=== PATIENT | female | born 1990 | race Caucasian/White ===

== ENCOUNTER 2020-04-18 12:31 | Emergency (ER) | payer SELFPAY ==
[2020-04-18] MEDS ORDERED: NORMAL SALINE 1000 ML 1,000 ML IV ONE (12:49)
--- NOTE | 2020-04-18 12:51 | ER Document Report ---
ED Medical Screen (RME) - General Chief Complaint: Vaginal Bleeding Stated Complaint: VAGINAL BLEEDING Time Seen by Provider: 04/18/20 12:48 Notes: HPI: 30-year-old female who is a G2, presenting for evaluation of vaginal bleeding that began approximately a week ago states it started with light bleeding but has developed significant cramping and clots today. Patient believes that she is approximately 7 weeks by dates. Has not yet seen [facility] for this . PHYSICAL EXAMINATION: Limited exam in triage mild tenderness over the suprapubic region on palpation mildly tachycardic I have greeted and performed a rapid initial assessment of this patient. A comprehensive ED assessment and evaluation of the patient, analysis of test results and completion of medical decision making process will be conducted by an additional ED providers. - Related Data Allergies/Adverse Reactions: No Known Allergies Allergy (Verified 04/18/20 12:37) Past Medical History - Social History Frequency of alcohol use: None Drug Abuse: None Physical Exam - Vital signs Vitals: Temp Pulse Resp BP Pulse Ox 98.2 F 119 H 20 138/89 H 98 04/18/20 12:35 04/18/20 12:35 04/18/20 12:35 04/18/20 12:35 04/18/20 12:35 Course - Vital Signs Vital signs: Temp Pulse Resp BP Pulse Ox 98.2 F 119 H 20 138/89 H 98 04/18/20 12:35 04/18/20 12:35 04/18/20 12:35 04/18/20 12:35 04/18/20 12:35
[2020-04-18 14:05] LABS: ABSOLUTE BASOPHILS # (AUTO) 0.1 10^3/uL (0.0-0.2); ABSOLUTE EOSINOPHILS # (AUTO) 0.3 10^3/uL (0.0-0.6); ABSOLUTE LYMPHOCYTES (AUTO) 1.2 10^3/uL (0.5-4.7); ABSOLUTE MONOCYTES (AUTO) 0.8 10^3/uL (0.1-1.4); ABSOLUTE NEUT (AUTO) 7.7 10^3/uL (1.7-8.2); BASOPHILS % (AUTO) 0.6 % (0-2); EOSINOPHILS % (AUTO) 2.6 % (0-6); HEMATOCRIT 34.3 % (36.0-47.0); HEMOGLOBIN 11.7 g/dL (12.0-15.5); LYMPHOCYTES % (AUTO) 12.3 % (13-45); MEAN CORPUSCULAR HGB CONC 34.1 g/dL (32.0-36.0); MEAN CORPUSCULAR VOLUME 88 fl (80-97); MONOCYTES % (AUTO) 8.2 % (3-13); PLATELET COUNT 262 10^3/uL (150-450); RED CELL DISTRIBUTION WIDTH 12.8 % (11.5-14.0); SEGMENTED NEUTROPHILS % (AUTO) 76.3 % (42-78); TOTAL CELLS COUNTED % (AUTO) 100 %
[2020-04-18 14:23] LABS: APPEARANCE,URINE SLIGHTLY-CLOUDY; BILIRUBIN,URINE NEGATIVE (NEGATIVE); GLUCOSE, URINE NEGATIVE (NEGATIVE); KETONES,URINE NEGATIVE (NEGATIVE); LEUKOCYTE ESTERASE,URINE NEGATIVE (NEGATIVE); NITRITE,URINE NEGATIVE (NEGATIVE); PROTEIN,URINE >=500 mg/dL (NEGATIVE); URINE SPECIFIC GRAVITY 1.023; UROBILINOGEN,URINE NEGATIVE mg/dL (<2.0)
[2020-04-18 14:26] LABS: COLOR,URINE YELLOW
[2020-04-18 14:29] LABS: ALBUMIN 4.4 g/dL (3.5-5.0); ALKALINE PHOSPHATASE 58 U/L (38-126); ANION GAP 9 (5-19); ASPARTATE AMINO TRANSFERASE 22 U/L (14-36); BILIRUBIN,DIRECT 0.2 mg/dL (0.0-0.4); BILIRUBIN,TOTAL 0.5 mg/dL (0.2-1.3); BLOOD UREA NITROGEN 8 mg/dL (7-20); CALCIUM 9.3 mg/dL (8.4-10.2); CARBON DIOXIDE 25 mmol/L (22-30); CHLORIDE 105 mmol/L (98-107); GLUCOSE 113 mg/dL (75-110); POTASSIUM 4.1 mmol/L (3.6-5.0); TOTAL PROTEIN 7.2 g/dL (6.3-8.2)
--- NOTE | 2020-04-18 14:40 | ER Document Report ---
ED GI/ - General Chief Complaint: Vaginal Bleeding Stated Complaint: VAGINAL BLEEDING Time Seen by Provider: 04/18/20 12:48 [facility] - Follow up in 3-5 days Notes: Patient is a 30-year-old female, G2, P0 who presents emergency department with vaginal bleeding. Patient states that her last menstrual cycle was around January 18. Patient states that she feels she is about 11 weeks . Denies any vaginal discharge. Patient has history of a miscarriage in the past. Denies any medical history. Patient denies any nausea or vomiting. Denies any diarrhea. Denies any dizziness or "passing out." - Related Data Allergies/Adverse Reactions: No Known Allergies Allergy (Verified 04/18/20 12:37) Past Medical History - General Information source: Patient - Social History Smoking Status: Never Smoker Frequency of alcohol use: None Drug Abuse: None Family History: Reviewed & Not Pertinent Review of Systems - Review of Systems Notes: REVIEW OF SYSTEMS: CONSTITUTIONAL : Denies recent illness. Denies recent unintentional weight loss. Denies fever, chills, or sweats. EENT: Denies eye, ear, throat, or mouth pain, discharge, or symptoms. Denies nasal or sinus congestion. CARDIOVASCULAR: Denies chest pain. RESPIRATORY: Denies shortness of breath, cough, congestion, difficulty breathing, or wheezing. GASTROINTESTINAL: See HPI. GENITOURINARY: Denies difficulty urinating, burning, blood in urine, urgency or frequency. FEMALE GENITOURINARY: See HPI. MUSCULOSKELETAL: Denies neck and back pain. Denies joint pain or swelling. SKIN: Denies rash, itchiness, or lesions HEMATOLOGIC : Denies easy bruising or bleeding. LYMPHATIC: Denies swollen, painful, enlarged glands. NEUROLOGICAL: Denies no numbness or tingling denies weakness. Denies headache. Denies altered mental status. Denies alteration in speech. PSYCHIATRIC: Denies stress, anxiety, alteration in sleep patterns, or depression. All other systems reviewed and negative. Physical Exam - Vital signs Vitals: Temp Pulse Resp BP Pulse Ox 98.2 F 119 H 20 138/89 H 98 04/18/20 12:35 04/18/20 12:35 04/18/20 12:35 04/18/20 12:35 04/18/20 12:35 - Notes Notes: PHYSICAL EXAMINATION: GENERAL: Appears well, healthy, well-nourished, no acute distress. HEAD: Normocephalic, atraumatic. EYES: PERRL, conjunctiva normal, all extraocular movements intact, sclera nonicteric ENT: Moist mucous membranes. NECK: Supple, no noticeable swelling, redness, rash. Normal range of motion. LUNGS: Equal breath sounds bilaterally and clear to auscultation. No wheezes rales or rhonchi. CARDIOVASCULAR: S1-S2, regular rate, regular rhythm. Radial pulses 2+, normal. ABDOMEN: Normoactive bowel sounds. Soft, slightly tender mid lower abdomen, no guarding, no rebound tenderness, and no masses palpated. EXTREMITIES: Normal strength and range of motion, no pitting or edema. No cyanosis. NEUROLOGICAL: Moves all extremities upon command. Strength 5/5 in all extremities. PSYCH: Normal mood, normal affect. SKIN: Warm, dry. No rash, lesions, ulcerations noted. Normal skin turgor. Course - Re-evaluation Re-evalutation: 04/18/20 15:23 Hematology is unremarkable, other than a slight anemia of 11.7. Hematocrit is also slightly low, due to the patient's bleeding. hCG is 647 and ultrasound does not show an intrauterine . This is consistent with a miscarriage. Discussed this with the patient. [facility] Patient has a moderate amount of blood in her urine. Advised her to take ibuprofen to help with pain. Offered [place] for home and she declined. We will give her a dose here in the emergency department to help take the edge off and help with her pain. Patient is Rh+. RhoGam not indicated. Follow-up precautions were given. Verbal discharge instructions were given to the patient. They verbalized understanding. They are stable for discharge. - Vital Signs Vital signs: Temp Pulse Resp BP Pulse Ox 98.2 F 86 16 134/86 H 100 04/18/20 12:35 04/18/20 16:00 04/18/20 16:00 04/18/20 16:00 04/18/20 16:00 - Laboratory Result Diagrams: 04/18/20 13:54 04/18/20 13:54 Laboratory results interpreted by me: 04/18/20 04/18/20 04/18/20 13:54 13:54 13:54 Hgb 11.7 L Hct 34.3 L Lymph % (Auto) 12.3 L Glucose 113 H Beta HCG, Quant 647.83 H Urine Protein >=500 H Urine Blood MODERATE H Discharge - Discharge Clinical Impression: Vaginal bleeding, Miscarriage Condition: Stable Disposition: HOME, SELF-CARE Additional Instructions: You were seen today in the emergency department for vaginal bleeding. Your labs and your ultrasound showed that you miscarried. Please continue to massage her abdomen to help expel any clots. You can take ibuprofen 600 mg every 6 hours as needed for your pain. Continue Tylenol 1000 mg every 6 hours for pain. Do not exceed 2400 mg of ibuprofen or 4000 mg of Tylenol in a 24-hour period. Follow- up with [facility] in regards to this visit. Forms: Return to Work Referrals: [facility] [Provider Group] - Follow up in 3-5 days
--- NOTE | 2020-04-18 14:57 | RADIOLOGY REPORT (SQ) ---
EXAM DESCRIPTION: U/S OB TRANSVAG W/DOPPLER IMAGES COMPLETED DATE/TIME: 04/18/2020 2:43 pm REASON FOR STUDY: miscarriage COMPARISON: None. TECHNIQUE: Transvaginal static and realtime grayscale images acquired of the pelvis. Additional beryl cted spectral and color Doppler images recorded. All images stored on PACs. bHCG: Not available CLINICAL DATES: Last menses 01/19/2020 LIMITATIONS: None. FINDINGS: UTERUS: Uterus is 10.6 x 6.1 x 5.7 cm in size. No fibroids. The endometrium is heterogeneous and thickened, almost 2 cm in greatest thickness likely related to b lood clot. CERVICAL LENGTH: 3.6 cm in length Closed. RIGHT ADNEXA: Normal ovary with normal vascular flow. Right ovary 3.2 x 3 x 1.4 cm in size. No adne xal free fluid.No adnexal masses. LEFT ADNEXA: Normal ovary with normal vascular flow. Left ovary 3 x 1.8 x 1.6 cm in size. No adnexa l free fluid.No adnexal masses. FREE FLUID: None. OTHER: No other significant finding. IMPRESSION: No intrauterine gestational sac identified. Thickened heterogeneous endometrium likely blood clot. This likely represents a spontaneous Trimester of : First trimester - 0 to 13 weeks. TECHNICAL DOCUMENTATION: JOB ID: [id number] [employer]- All Rights Reserved rev-01/05 Reading location - IP/workstation name: [email or web address]
[2020-04-18] MEDS ORDERED: HYDROCODONE/ACETAMINOPHEN 5-325 MG TABLET PO ONE (15:16)
[2020-04-18 16:07] VITALS: BP 134/86
== END 2020-04-18 16:00 | disposition home or self-care (01) ==
LOC: ER 12:31
DX: O03.9 Complete or unspecified spontaneous abortion without complication (principal); D64.9 Anemia, unspecified; R10.819 Abdominal tenderness, unspecified site; R31.9 Hematuria, unspecified
CPT/HCPCS: 99285; 96360; 86900; 86901; 36415; 84702; 85025; 80053; 81001; 76817; 93976; J7030